=== PATIENT | male | born 1950 | race Hispanic/Latino ===

== ENCOUNTER → 2021-02-24 | Emergency (ER) | payer MEDICARE ==
[~2021-02-24] VITALS: Ht 170.2 cm; Wt 79.4 kg
== END | disposition home or self-care (01) ==
LOC: ER 13:00
DX: U07.1 COVID-19 (principal)
CPT/HCPCS: 99283

== ENCOUNTER 2022-03-02 12:05 | Inpatient (IN) | payer MEDICARE ==
[~2022-03-02] VITALS: Ht 170.2 cm; Wt 79.4 kg
[2022-03-02 13:04] LABS: BASOPHILS # (AUTO) 0.1 (0.0-0.1); BASOPHILS % 0.9 % (0.0-1.0); EOSINOPHILS # (AUTO) 0.1 (0.0-0.4); EOSINOPHILS % 1.9 % (0.0-6.0); HEMATOCRIT 40.9 % (38.2-49.6); HEMOGLOBIN 13.8 g/dL (14.0-18.0); LYMPHOCYTES % 14.4 % (18.0-39.1); MEAN CORPUSCULAR HEMOGLOBIN 30.2 pg (28-32); MEAN CORPUSCULAR HGB CONC 33.7 g/dL (31-35); MEAN CORPUSCULAR VOLUME 89.5 fL (81-99); MONOCYTES # (AUTO) 0.6 (0.2-0.8); MONOCYTES % 8.6 % (4.4-11.3); NEUTROPHILS # (AUTO) 5.2 (2.1-6.9); NEUTROPHILS % 73.9 % (38.7-80.0); PLATELET COUNT 371 x10e3/uL (140-360); RED BLOOD COUNT 4.57 x10e6/uL (4.3-5.7); RED CELL DISTRIBUTION WIDTH 12.8 % (11.7-14.4)
[2022-03-02 13:16] LABS: INR 0.87; PROTHROMBIN TIME 12.7 seconds (11.9-14.5)
[2022-03-02 13:17] LABS: PARTIAL THROMBOPLASTIN TIME 27.1 seconds (23.8-35.5)
[2022-03-02 13:27] LABS: ALBUMIN 3.7 g/dL (3.5-5.0); ANION GAP 17.6 mmol/L (8-16); CALCIUM 9.4 mg/dL (8.4-10.2); CREATININE, SERUM 2.71 mg/dL (0.72-1.25); POTASSIUM 4.6 mmol/L (3.5-5.1)
[2022-03-02] MEDS ORDERED: FUROSEMIDE INJ 10 MG/ML 2 ML VIAL IV ONE (14:30)
[2022-03-02 14:35] LABS: CLARITY,URINE SL CLOUDY (CLEAR); COLOR,URINE YELLOW (YELLOW); KETONES,URINE NEGATIVE (NEGATIVE); LEUKOCYTE ESTERASE ,URINE NEGATIVE (NEGATIVE); NITRITE,URINE NEGATIVE (NEGATIVE); PROTEIN,URINE DIPSTICK 2+ (NEGATIVE); URINE UROBILINOGEN 0.2 mg/dL (0.2 - 1)
[2022-03-02 14:39] LABS: CREATINE KINASE MB 4.6 ng/mL (0-5.0)
[2022-03-02 14:48] LABS: BACTERIA,URINE MODERATE /HPF
[2022-03-02 20:00] VITALS: BP 143/73
[2022-03-02 20:30] VITALS: BP 143/73
[2022-03-02] MEDS ORDERED: LASIX10 MG/ML PO (21:00)
[2022-03-02] MEDS ORDERED: AMLODIPINE BESY10 MG PO (21:03)
[2022-03-02] MEDS ORDERED: HYDRALAZINE HCL10 MG PO (21:05)
[2022-03-02] MEDS ORDERED: GABAPENTIN100 MG PO (21:07)
[2022-03-02] MEDS ORDERED: ATORVASTATIN CA20 MG PO (21:08)
[2022-03-02] MEDS ORDERED: METOPROLOL SUCC50 MG PO (21:09)
[2022-03-02] MEDS ORDERED: BENICAR20 MG PO (21:11)
[2022-03-02] MEDS ORDERED: FARXIGA10 MG PO (21:13)
[2022-03-02] MEDS ORDERED: BRILINTA60 MG PO (21:15)
[2022-03-02] MEDS ORDERED: ASPIRIN CHEW81 MG PO (21:16)
[2022-03-02] MEDS ORDERED: NOVOLIN 70100 UNIT/3 SQ (21:18)
[2022-03-02] MEDS: INSULIN LISPRO 100 UNIT/1 ML 3ML VIAL SQ SCH (22:00)
[2022-03-02] MEDS ORDERED: HYDRALAZINE HCL 20 MG/ML VIAL IV PRN (22:00)
[2022-03-02] MEDS ORDERED: DEXTROSE 50% SYRINGE 50 ML IV PRN (22:00)
[2022-03-02] MEDS ORDERED: ONDANSETRON HCL INJ 2MG/ML 2ML 2 MG/ML VIAL IV PRN (22:45)
[2022-03-02] MEDS: FARXIGA PO SCH (22:45)
[2022-03-02] MEDS ORDERED: LACTULOSE SYRUP 20 GM/30 ML UDC PO PRN (22:45)
[2022-03-02] MEDS ORDERED: SENNA-S TABLET PO PRN (22:45)
[2022-03-02] MEDS: METOPROLOL SUCCINATE 50 MG TAB XL PO SCH (23:25)
[2022-03-02] MEDS: FUROSEMIDE INJ 10 MG/ML 4 ML VIAL IV SCH (23:25)
[2022-03-02] MEDS: TICAGRELOR 90 MG TABLET PO SCH (23:26)
[2022-03-02] MEDS: ACETAMINOPHEN 325 MG TAB PO PRN (23:29)
[2022-03-03] VITALS (9 sets, daily range): BP systolic 120–175; BP diastolic 55–106
[2022-03-03 05:54] LABS: ANION GAP 18.1 mmol/L (8-16); CALCIUM 9.4 mg/dL (8.4-10.2); CREATININE, SERUM 2.53 mg/dL (0.72-1.25); POTASSIUM 4.1 mmol/L (3.5-5.1)
[2022-03-03 05:54] LABS: MAGNESIUM 2.6 MG/DL (1.3-2.1); PHOSPHORUS 3.7 MG/DL (2.3-4.7)
[2022-03-03 06:18] LABS: THYROID STIMULATING HORMONE 0.972 uIU/mL (0.350-4.940)
[2022-03-03] MEDS: INSULIN LISPRO 100 UNIT/1 ML 3ML VIAL SQ SCH ×4 (07:30→22:04)
[2022-03-03] MEDS: HUMULIN 70/30 VIAL SQ SCH ×2 (07:30→16:30)
[2022-03-03] MEDS: FUROSEMIDE INJ 10 MG/ML 4 ML VIAL IV SCH (08:17)
[2022-03-03] MEDS: TICAGRELOR 90 MG TABLET PO SCH ×2 (08:18→17:09)
[2022-03-03] MEDS: GABAPENTIN 100 MG CAP PO SCH (08:18)
[2022-03-03] MEDS: ASPIRIN 81 MG CHEW TAB PO SCH (08:18)
[2022-03-03] MEDS: HYDRALAZINE HCL 10 MG TAB PO SCH ×3 (08:19→21:33)
[2022-03-03] MEDS: AMLODIPINE BESYLATE 10 MG TAB PO SCH (08:19)
[2022-03-03] MEDS: ACETAMINOPHEN 325 MG TAB PO PRN ×2 (12:43→21:45)
[2022-03-03] MEDS: FARXIGA PO SCH (21:00)
[2022-03-03] MEDS ORDERED: ATORVASTATIN 40 MG TAB PO SCH (21:00)
[2022-03-03] MEDS: METOPROLOL SUCCINATE 50 MG TAB XL PO SCH (21:32)
[2022-03-04] VITALS (7 sets, daily range): BP systolic 115–145; BP diastolic 52–86
[2022-03-04 06:36] LABS: ANION GAP 16.7 mmol/L (8-16); CREATININE, SERUM 2.63 mg/dL (0.72-1.25); POTASSIUM 3.7 mmol/L (3.5-5.1)
[2022-03-04] MEDS: INSULIN LISPRO 100 UNIT/1 ML 3ML VIAL SQ SCH ×4 (07:30→21:00)
[2022-03-04] MEDS: HUMULIN 70/30 VIAL SQ SCH ×2 (07:30→17:21)
[2022-03-04] MEDS: HYDRALAZINE HCL 10 MG TAB PO SCH ×3 (08:46→22:22)
[2022-03-04] MEDS: AMLODIPINE BESYLATE 10 MG TAB PO SCH (08:47)
[2022-03-04] MEDS: TICAGRELOR 90 MG TABLET PO SCH ×2 (08:47→16:58)
[2022-03-04] MEDS: GABAPENTIN 100 MG CAP PO SCH (08:47)
[2022-03-04] MEDS: FUROSEMIDE INJ 10 MG/ML 4 ML VIAL IV SCH ×2 (08:48→12:23)
[2022-03-04] MEDS: ASPIRIN 81 MG CHEW TAB PO SCH (08:48)
[2022-03-04] MEDS: TAMSULOSIN HCL 0.4 MG CAP PO SCH (16:57)
[2022-03-04] MEDS: FARXIGA PO SCH (21:00)
[2022-03-04] MEDS: METOPROLOL SUCCINATE 50 MG TAB XL PO SCH (22:21)
[2022-03-04] MEDS: ACETAMINOPHEN 325 MG TAB PO PRN (22:28)
[2022-03-05] VITALS (7 sets, daily range): BP systolic 89–145; BP diastolic 57–88
[2022-03-05 06:09] LABS: ANION GAP 17.7 mmol/L (8-16); CREATININE, SERUM 2.79 mg/dL (0.72-1.25); POTASSIUM 3.7 mmol/L (3.5-5.1)
[2022-03-05] MEDS: INSULIN LISPRO 100 UNIT/1 ML 3ML VIAL SQ SCH ×4 (07:30→21:00)
[2022-03-05] MEDS: HUMULIN 70/30 VIAL SQ SCH ×2 (07:30→17:05)
[2022-03-05] MEDS: HYDRALAZINE HCL 10 MG TAB PO SCH ×3 (08:30→21:28)
[2022-03-05] MEDS: ASPIRIN 81 MG CHEW TAB PO SCH (08:31)
[2022-03-05] MEDS: FUROSEMIDE INJ 10 MG/ML 4 ML VIAL IV SCH ×2 (08:31→11:49)
[2022-03-05] MEDS: GABAPENTIN 100 MG CAP PO SCH (08:31)
[2022-03-05] MEDS: TICAGRELOR 90 MG TABLET PO SCH ×2 (08:31→17:00)
[2022-03-05] MEDS: AMLODIPINE BESYLATE 10 MG TAB PO SCH (08:31)
[2022-03-05] MEDS ORDERED: ONDANSETRON HCL 4 MG ORAL DISINTEGRATING TAB PO PRN (11:45)
[2022-03-05] MEDS: TAMSULOSIN HCL 0.4 MG CAP PO SCH (17:00)
[2022-03-05] MEDS: FARXIGA PO SCH (21:28)
[2022-03-05] MEDS: METOPROLOL SUCCINATE 50 MG TAB XL PO SCH (21:28)
[2022-03-06] VITALS (7 sets, daily range): BP systolic 113–137; BP diastolic 53–77
[2022-03-06] MEDS: INSULIN LISPRO 100 UNIT/1 ML 3ML VIAL SQ SCH ×4 (07:30→21:00)
[2022-03-06] MEDS: FUROSEMIDE INJ 10 MG/ML 4 ML VIAL IV SCH ×2 (10:37→12:16)
[2022-03-06] MEDS: ASPIRIN 81 MG CHEW TAB PO SCH (10:37)
[2022-03-06] MEDS: AMLODIPINE BESYLATE 10 MG TAB PO SCH (10:38)
[2022-03-06] MEDS: GABAPENTIN 100 MG CAP PO SCH (10:38)
[2022-03-06] MEDS: HYDRALAZINE HCL 10 MG TAB PO SCH ×3 (10:38→21:37)
[2022-03-06] MEDS: TICAGRELOR 90 MG TABLET PO SCH ×2 (10:39→17:36)
[2022-03-06] MEDS: HUMULIN 70/30 VIAL SQ SCH ×2 (11:07→17:36)
[2022-03-06] MEDS: FUROSEMIDE 20 MG TAB PO SCH (17:36)
[2022-03-06] MEDS: TAMSULOSIN HCL 0.4 MG CAP PO SCH (17:36)
[2022-03-06] MEDS: FARXIGA PO SCH (21:00)
[2022-03-06] MEDS: ATORVASTATIN 20 MG TAB PO SCH (21:37)
[2022-03-06] MEDS: METOPROLOL SUCCINATE 50 MG TAB XL PO SCH (21:37)
[2022-03-07] VITALS (7 sets, daily range): BP systolic 114–148; BP diastolic 57–108
[2022-03-07 06:10] LABS: BASOPHILS % 0.7 % (0.0-1.0); EOSINOPHILS # (AUTO) 0.1 (0.0-0.4); EOSINOPHILS % 1.8 % (0.0-6.0); HEMATOCRIT 35.4 % (38.2-49.6); HEMOGLOBIN 12.4 g/dL (14.0-18.0); LYMPHOCYTES % 16.9 % (18.0-39.1); MEAN CORPUSCULAR HEMOGLOBIN 30.4 pg (28-32); MEAN CORPUSCULAR VOLUME 86.8 fL (81-99); MONOCYTES # (AUTO) 0.6 (0.2-0.8); MONOCYTES % 11.1 % (4.4-11.3); NEUTROPHILS # (AUTO) 3.9 (2.1-6.9); NEUTROPHILS % 69.1 % (38.7-80.0); PLATELET COUNT 278 x10e3/uL (140-360); RED BLOOD COUNT 4.08 x10e6/uL (4.3-5.7); RED CELL DISTRIBUTION WIDTH 12.5 % (11.7-14.4)
[2022-03-07 06:26] LABS: ANION GAP 16.6 mmol/L (8-16); CREATININE, SERUM 2.82 mg/dL (0.72-1.25); POTASSIUM 3.6 mmol/L (3.5-5.1)
[2022-03-07] MEDS: FUROSEMIDE 20 MG TAB PO SCH ×2 (06:31→18:51)
[2022-03-07] MEDS: INSULIN LISPRO 100 UNIT/1 ML 3ML VIAL SQ SCH ×3 (07:30→19:01)
[2022-03-07] MEDS: ASPIRIN 81 MG CHEW TAB PO SCH (09:54)
[2022-03-07] MEDS: HUMULIN 70/30 VIAL SQ SCH ×2 (09:55→18:52)
[2022-03-07] MEDS: TICAGRELOR 90 MG TABLET PO SCH ×2 (09:55→18:49)
[2022-03-07] MEDS: HYDRALAZINE HCL 10 MG TAB PO SCH ×3 (09:55→20:57)
[2022-03-07] MEDS: GABAPENTIN 100 MG CAP PO SCH (09:55)
[2022-03-07] MEDS: AMLODIPINE BESYLATE 10 MG TAB PO SCH (13:21)
[2022-03-07] MEDS: TAMSULOSIN HCL 0.4 MG CAP PO SCH (18:50)
[2022-03-07] MEDS: METOPROLOL SUCCINATE 50 MG TAB XL PO SCH (20:57)
[2022-03-07] MEDS: ATORVASTATIN 20 MG TAB PO SCH (20:58)
[2022-03-08] VITALS: BP 115/63
[2022-03-08] MEDS: INSULIN LISPRO 100 UNIT/1 ML 3ML VIAL SQ SCH ×3 (00:07→11:37)
[2022-03-08] MEDS: FARXIGA PO SCH (00:08)
[2022-03-08 04:00] VITALS: BP 121/72
[2022-03-08] MEDS: FUROSEMIDE 20 MG TAB PO SCH (06:35)
[2022-03-08 06:40] VITALS: BP 121/72
[2022-03-08 08:03] VITALS: BP 110/62
[2022-03-08] MEDS: HUMULIN 70/30 VIAL SQ SCH (08:30)
[2022-03-08 08:37] VITALS: BP 110/62
[2022-03-08] MEDS: GABAPENTIN 100 MG CAP PO SCH (09:56)
[2022-03-08] MEDS: ASPIRIN 81 MG CHEW TAB PO SCH (09:56)
[2022-03-08] MEDS: TICAGRELOR 90 MG TABLET PO SCH (09:56)
[2022-03-08] MEDS: HYDRALAZINE HCL 10 MG TAB PO SCH (09:56)
[2022-03-08] MEDS: AMLODIPINE BESYLATE 10 MG TAB PO SCH (09:57)
[2022-03-08 12:00] VITALS: BP 126/74
== END 2022-03-08 14:00 | DRG 291 ==
LOC: ER 12:08 → ERHOLD 14:20 → MED/SURG2 20:07
PROVIDERS: ADMIT Internal Medicine; ATTEND Internal Medicine
DX: I13.2 Hypertensive heart and chronic kidney disease with heart failure and with stage 5 chronic kidney disease, or end stage renal disease (principal); I50.33 Acute on chronic diastolic (congestive) heart failure; I69.354 Hemiplegia and hemiparesis following cerebral infarction affecting left non-dominant side; N39.0 Urinary tract infection, site not specified; N18.5 Chronic kidney disease, stage 5; N17.9 Acute kidney failure, unspecified; N41.0 Acute prostatitis; R18.8 Other ascites; E11.22 Type 2 diabetes mellitus with diabetic chronic kidney disease; E11.51 Type 2 diabetes mellitus with diabetic peripheral angiopathy without gangrene; E78.5 Hyperlipidemia, unspecified; I25.2 Old myocardial infarction; Z95.5 Presence of coronary angioplasty implant and graft; B96.4 Proteus (mirabilis) (morganii) as the cause of diseases classified elsewhere; N40.1 Benign prostatic hyperplasia with lower urinary tract symptoms; R33.8 Other retention of urine; I70.201 Unspecified atherosclerosis of native arteries of extremities, right leg; E11.42 Type 2 diabetes mellitus with diabetic polyneuropathy; R62.7 Adult failure to thrive; Z68.27 Body mass index [BMI] 27.0-27.9, adult; Z20.822 Contact with and (suspected) exposure to COVID-19
CPT/HCPCS: 36415; 70450; 71045; 71250; 74176; 76770; 80048; 80053; 81001; 81050; 82550; 82553; 82948; 83036; 83735; 83880; 84100; 84156; 84165; 84443; 84484; 85025; 85610; 85730; 87086; 93005; 93306; 93970; 96372; 99251; 99284; J0360; J0696; J1940